=== PATIENT | female | born 1965 | race Caucasian/White ===

== ENCOUNTER → 2019-07-31 10:48 | Outpatient (BNVA) | payer MEDICARE, SELFPAY | PROVIDERS: Family Provider Internal Medicine; PCP Internal Medicine; Visit Provider Nurse Practitioner | DX: F33.41 Major depressive disorder, recurrent, in partial remission (principal); F17.210 Nicotine dependence, cigarettes, uncomplicated | CPT/HCPCS: 99213 ==

== ENCOUNTER → 2019-09-11 11:00 | Outpatient (BNVA) | payer MEDICARE, SELFPAY | PROVIDERS: Family Provider Internal Medicine; PCP Internal Medicine; Visit Provider Internal Medicine | DX: J32.9 Chronic sinusitis, unspecified (principal); E11.65 Type 2 diabetes mellitus with hyperglycemia; Z79.4 Long term (current) use of insulin; E03.9 Hypothyroidism, unspecified; R30.0 Dysuria; I10 Essential (primary) hypertension; F33.41 Major depressive disorder, recurrent, in partial remission | CPT/HCPCS: 80053; 81003; 83036; 84443; 85025 ==

== ENCOUNTER → 2019-10-02 08:31 | Outpatient (BNVA) | payer MEDICARE, SELFPAY | PROVIDERS: Family Provider Internal Medicine; PCP Internal Medicine; Visit Provider Otolaryngology | DX: H92.01 Otalgia, right ear (principal); H69.81 Other specified disorders of Eustachian tube, right ear; J34.2 Deviated nasal septum; F17.210 Nicotine dependence, cigarettes, uncomplicated; Z71.6 Tobacco abuse counseling | CPT/HCPCS: 99213; 99214 ==

== ENCOUNTER → 2019-11-24 07:47 | Outpatient (BNVA) | payer MEDICARE, SELFPAY | PROVIDERS: Family Provider Internal Medicine; PCP Internal Medicine; Visit Provider Nurse Practitioner | DX: F33.41 Major depressive disorder, recurrent, in partial remission (principal); F60.3 Borderline personality disorder | CPT/HCPCS: 99213 ==

== ENCOUNTER 2020-01-22 09:17 | Outpatient (CLI) | payer MEDICARE, SELFPAY ==
--- NOTE | 2020-01-22 09:23 | MM_ITS ---
WS: [id number] BILATERAL DIGITAL SCREENING MAMMOGRAM WITH CAD CLINICAL INFORMATION: SCREENING HISTORY: Screening mammogram. No current complaints. COMPARISON: [id number] TECHNIQUE: Bilateral CC and MLO views. FINDINGS: Fatty-replaced breasts bilaterally. No suspicious focal mass, asymmetry, calcifications, or desktop architect ural distortion. No evidence of malignancy. MM/[id number] IMPRESSION: BI-RADS: 1-Negative FOLLOW UP: 1 Year Follow-up Recommend return to annual screening mammography.
== END 2020-01-22 09:18 | disposition home or self-care (01) ==
LOC: RADSHAW 09:21
PROVIDERS: PCP Internal Medicine; Visit Provider Internal Medicine
DX: Z12.31 Encounter for screening mammogram for malignant neoplasm of breast (principal)
CPT/HCPCS: 77067

== ENCOUNTER → 2020-02-19 10:21 | Outpatient (BNVA) | payer MEDICARE, SELFPAY | PROVIDERS: PCP Internal Medicine; Visit Provider Nurse Practitioner | DX: F33.41 Major depressive disorder, recurrent, in partial remission (principal); F17.210 Nicotine dependence, cigarettes, uncomplicated | CPT/HCPCS: 99213 ==

== ENCOUNTER → 2020-05-13 15:00 | Outpatient (BNVA) | payer MEDICARE, SELFPAY | PROVIDERS: PCP Internal Medicine; Visit Provider Nurse Practitioner | DX: F33.41 Major depressive disorder, recurrent, in partial remission (principal); F17.210 Nicotine dependence, cigarettes, uncomplicated | CPT/HCPCS: 99213 ==

== ENCOUNTER → 2020-07-30 08:32 | Outpatient (BNVA) | payer MEDICARE, SELFPAY | PROVIDERS: PCP Internal Medicine; Visit Provider Family Medicine Adult Medicine | DX: E11.65 Type 2 diabetes mellitus with hyperglycemia (principal); I10 Essential (primary) hypertension; E66.9 Obesity, unspecified; Z13.6 Encounter for screening for cardiovascular disorders; Z79.4 Long term (current) use of insulin | CPT/HCPCS: 80053; 80061; 83036; 84443; 85025 ==

== ENCOUNTER → 2020-08-10 15:01 | Outpatient (BNVA) | payer MEDICARE, SELFPAY | PROVIDERS: PCP Internal Medicine; Visit Provider Nurse Practitioner | DX: F33.41 Major depressive disorder, recurrent, in partial remission (principal); F17.210 Nicotine dependence, cigarettes, uncomplicated | CPT/HCPCS: 99214 ==

== ENCOUNTER → 2020-11-02 14:47 | Outpatient (BNVA) | payer MEDICARE, SELFPAY | PROVIDERS: PCP Internal Medicine; Visit Provider Nurse Practitioner | DX: F33.41 Major depressive disorder, recurrent, in partial remission (principal); F17.210 Nicotine dependence, cigarettes, uncomplicated | CPT/HCPCS: 99214 ==

== ENCOUNTER → 2020-11-17 11:30 | Outpatient (BNVA) | payer MEDICARE, SELFPAY | PROVIDERS: PCP Family Medicine Adult Medicine; Visit Provider Family Medicine Adult Medicine | DX: E11.69 Type 2 diabetes mellitus with other specified complication (principal); E66.9 Obesity, unspecified; E66.01 Morbid (severe) obesity due to excess calories; Z68.41 Body mass index [BMI] 40.0-44.9, adult; N18.2 Chronic kidney disease, stage 2 (mild); I10 Essential (primary) hypertension; E78.5 Hyperlipidemia, unspecified; J30.9 Allergic rhinitis, unspecified; R60.0 Localized edema; H69.81 Other specified disorders of Eustachian tube, right ear; J32.0 Chronic maxillary sinusitis | CPT/HCPCS: 80053; 80061; 83036; 85025 ==

== ENCOUNTER 2021-01-24 10:22 | Outpatient (CLI) | payer MEDICARE, SELFPAY ==
--- NOTE | 2021-01-24 10:33 | MM_ITS ---
WS: [id number] BILATERAL DIGITAL SCREENING MAMMOGRAPHY WITH CAD CLINICAL INFORMATION: SCREENING HISTORY: Screening mammogram. No current complaints. COMPARISON: January 22, 2020 TECHNIQUE: Bilateral CC and MLO views. FINDINGS: Scattered fibroglandular densities bilaterally. No suspicious focal mass, asymmetry, calcifications, or architectural distortion. No evidence of malignancy. MM/[id number] IMPRESSION: BI-RADS: 1-Negative FOLLOW UP: 1 Year Follow-up Recommend return to annual screening mammography.
== END 2021-01-24 10:23 | disposition home or self-care (01) ==
LOC: RADSHAW 10:30
PROVIDERS: PCP Family Medicine Adult Medicine; Visit Provider Family Medicine Adult Medicine
DX: Z12.31 Encounter for screening mammogram for malignant neoplasm of breast (principal)
CPT/HCPCS: 77067

== ENCOUNTER → 2021-01-27 09:42 | Outpatient (BNVA) | payer MEDICARE, SELFPAY | PROVIDERS: PCP Internal Medicine; Visit Provider Nurse Practitioner | DX: F33.41 Major depressive disorder, recurrent, in partial remission (principal); F17.210 Nicotine dependence, cigarettes, uncomplicated | CPT/HCPCS: 99214 ==

== ENCOUNTER → 2021-02-15 08:58 | Outpatient (BNVA) | payer MEDICARE, SELFPAY | PROVIDERS: PCP Internal Medicine; Visit Provider Family Medicine Adult Medicine | DX: E11.69 Type 2 diabetes mellitus with other specified complication (principal); E66.9 Obesity, unspecified; E78.5 Hyperlipidemia, unspecified; N18.2 Chronic kidney disease, stage 2 (mild) | CPT/HCPCS: 80053; 80061; 83036 ==

== ENCOUNTER 2021-02-28 11:48 | Outpatient (CLI) | payer MEDICARE, SELFPAY ==
--- NOTE | 2021-02-28 12:00 | US_ITS ---
WS: [id number] ULTRASOUND SOFT TISSUES LEFT upper extremity. HISTORY: left arm muscle pain and swelling, non-traumatic COMPARISON: None available. TECHNIQUE: 2-D and color Doppler imaging is submitted. No abnormality is noted along the LEFT upper outer arm in the area of concern. There is no edema or m ass. US/US soft tissue/extremity [id number] IMPRESSION: Negative soft tissue ultrasound LEFT upper extremity.
== END 2021-02-28 11:49 | disposition home or self-care (01) ==
PROVIDERS: PCP Family Medicine Adult Medicine; Visit Provider Family Medicine Adult Medicine
DX: M79.622 Pain in left upper arm (principal); M79.89 Other specified soft tissue disorders
CPT/HCPCS: 76882

== ENCOUNTER → 2021-04-29 10:53 | Outpatient (BNVA) | payer MEDICARE, SELFPAY | PROVIDERS: PCP Family Medicine Adult Medicine; Visit Provider Nurse Practitioner | DX: F33.41 Major depressive disorder, recurrent, in partial remission (principal); F17.210 Nicotine dependence, cigarettes, uncomplicated | CPT/HCPCS: 99214 ==

== ENCOUNTER → 2021-07-22 10:46 | Outpatient (BNVA) | payer MEDICARE, SELFPAY | PROVIDERS: PCP Family Medicine Adult Medicine; Visit Provider Nurse Practitioner | DX: F33.41 Major depressive disorder, recurrent, in partial remission (principal); F17.210 Nicotine dependence, cigarettes, uncomplicated | CPT/HCPCS: 99214 ==

== ENCOUNTER → 2021-07-27 07:31 | Outpatient (BNVA) | payer MEDICARE, SELFPAY | PROVIDERS: PCP Family Medicine Adult Medicine; Visit Provider Family Medicine Adult Medicine | DX: E61.1 Iron deficiency (principal); E66.01 Morbid (severe) obesity due to excess calories; E78.5 Hyperlipidemia, unspecified; N18.2 Chronic kidney disease, stage 2 (mild); I12.9 Hypertensive chronic kidney disease with stage 1 through stage 4 chronic kidney disease, or unspecified chronic kidney disease; Z68.41 Body mass index [BMI] 40.0-44.9, adult | CPT/HCPCS: 80053; 80061; 83036; 84443; 85025 ==

== ENCOUNTER → 2021-10-17 10:47 | Outpatient (BNVA) | payer MEDICARE, SELFPAY | PROVIDERS: PCP Family Medicine Adult Medicine; Visit Provider Nurse Practitioner | DX: F33.41 Major depressive disorder, recurrent, in partial remission (principal); F17.210 Nicotine dependence, cigarettes, uncomplicated | CPT/HCPCS: 99214 ==

== ENCOUNTER → 2021-10-21 09:38 | Outpatient (BNVA) | payer MEDICARE, SELFPAY | PROVIDERS: PCP Family Medicine Adult Medicine; Visit Provider Family Medicine Adult Medicine | DX: E11.69 Type 2 diabetes mellitus with other specified complication (principal); E66.9 Obesity, unspecified; E78.5 Hyperlipidemia, unspecified | CPT/HCPCS: 80053; 80061; 83036; 85025 ==

== ENCOUNTER → 2022-01-10 10:40 | Outpatient (BNVA) | payer MEDICARE, SELFPAY | PROVIDERS: PCP Family Medicine Adult Medicine; Visit Provider Nurse Practitioner | DX: F33.41 Major depressive disorder, recurrent, in partial remission (principal); F17.210 Nicotine dependence, cigarettes, uncomplicated | CPT/HCPCS: 99214 ==

== ENCOUNTER 2022-01-27 11:25 | Outpatient (CLI) | payer MEDICARE, SELFPAY ==
--- NOTE | 2022-01-27 11:27 | MM_ITS ---
WS: [id number] Bilateral screening 3D tomosynthesis digital mammogram, 01/27/2022 Clinical Data: SCREEN Comparison: 01/24/2021, 01/22/2020, 01/20/2019, 01/18/2018, 01/12/2017, 01/11/2016, 10/08/2013, 10/20/2004. Findings: The breast parenchymal pattern shows fat replacement. No spiculated masses or clustered calcification s are seen. There are no secondary signs of carcinoma. MM/[id number] Impression: 1. Negative bilateral mammogram unchanged. 2. Recommend annual screening mammograms. BIRADS: 1-Negative FOLLOW UP: 1 Year Follow-up The CAD warehouse checker was used.
== END 2022-01-27 11:26 | disposition home or self-care (01) ==
LOC: RAD 11:25
PROVIDERS: PCP Family Medicine Adult Medicine; Visit Provider Family Medicine Adult Medicine
DX: Z12.31 Encounter for screening mammogram for malignant neoplasm of breast (principal)
CPT/HCPCS: 77063; 77067

== ENCOUNTER → 2022-03-02 10:10 | Outpatient (BNVA) | payer MEDICARE, SELFPAY | PROVIDERS: PCP Family Medicine Adult Medicine; Visit Provider Family Medicine Adult Medicine | DX: E11.22 Type 2 diabetes mellitus with diabetic chronic kidney disease (principal); N18.2 Chronic kidney disease, stage 2 (mild); E66.9 Obesity, unspecified | CPT/HCPCS: 80053; 80061; 83036 ==

== ENCOUNTER → 2022-04-06 15:38 | Outpatient (BNVA) | payer MEDICARE, SELFPAY | PROVIDERS: PCP Family Medicine Adult Medicine; Visit Provider Family Medicine | DX: M54.9 Dorsalgia, unspecified (principal); G89.29 Other chronic pain; M54.50 Low back pain, unspecified | CPT/HCPCS: 81000 ==

== ENCOUNTER → 2022-05-11 10:35 | Outpatient (BNVA) | payer MEDICARE, SELFPAY | PROVIDERS: PCP Family Medicine Adult Medicine; Visit Provider Family Medicine Adult Medicine | DX: E66.9 Obesity, unspecified; N18.2 Chronic kidney disease, stage 2 (mild); E78.5 Hyperlipidemia, unspecified; E66.01 Morbid (severe) obesity due to excess calories; E11.22 Type 2 diabetes mellitus with diabetic chronic kidney disease; I12.9 Hypertensive chronic kidney disease with stage 1 through stage 4 chronic kidney disease, or unspecified chronic kidney disease | CPT/HCPCS: 80053; 80061; 83036; 85025 ==

== ENCOUNTER → 2022-11-14 09:11 | Outpatient (BNVA) | payer MEDICARE, SELFPAY | PROVIDERS: PCP Family Medicine Adult Medicine; Visit Provider Family Medicine Adult Medicine | DX: N18.2 Chronic kidney disease, stage 2 (mild) (principal); I10 Essential (primary) hypertension; F33.41 Major depressive disorder, recurrent, in partial remission; E66.9 Obesity, unspecified; E11.69 Type 2 diabetes mellitus with other specified complication | CPT/HCPCS: 80053; 82652; 83036; 84443; 85025 ==

== ENCOUNTER 2023-01-29 12:58 | Outpatient (CLI) | payer MEDICARE, SELFPAY ==
--- NOTE | 2023-01-29 13:26 | MM_ITS ---
WS: [id number] BILATERAL 3D TOMOSYNTHESIS DIGITAL SCREENING MAMMOGRAPHY WITH CAD CLINICAL INFORMATION: SCREENING HISTORY: Screening mammogram. No current complaints. COMPARISON: 2021 TECHNIQUE: Bilateral CC and MLO views. FINDINGS: Scattered fibroglandular densities bilaterally. No suspicious focal mass, asymmetry, calcifications, or architectural distortion. No evidence of malignancy. Incidental subareolar calcifications LEFT davion ast unchanged. MM/[id number] IMPRESSION: BI-RADS: 2-Benign FOLLOW UP: 1 Year Follow-up Recommend return to annual screening mammography.
== END 2023-01-29 12:59 | disposition home or self-care (01) ==
PROVIDERS: PCP Family Medicine Adult Medicine; Visit Provider Family Medicine Adult Medicine
DX: Z12.31 Encounter for screening mammogram for malignant neoplasm of breast (principal)
CPT/HCPCS: 77063; 77067

== ENCOUNTER → 2023-08-29 11:16 | Outpatient (BNVA) | payer MEDICARE, SELFPAY | PROVIDERS: PCP Family Medicine Adult Medicine; Visit Provider Family Medicine Adult Medicine | DX: I10 Essential (primary) hypertension (principal); E11.69 Type 2 diabetes mellitus with other specified complication; E66.9 Obesity, unspecified; E78.5 Hyperlipidemia, unspecified | CPT/HCPCS: 85025 ==

== ENCOUNTER → 2023-08-30 08:22 | Outpatient (BNVA) | payer MEDICARE, SELFPAY | PROVIDERS: PCP Family Medicine Adult Medicine; Visit Provider Family Medicine Adult Medicine | DX: I10 Essential (primary) hypertension (principal); E11.69 Type 2 diabetes mellitus with other specified complication; E66.9 Obesity, unspecified; E78.5 Hyperlipidemia, unspecified | CPT/HCPCS: 80053; 80061; 83036; 85025 ==

== ENCOUNTER 2024-01-26 13:18 | Emergency (ER) | payer MEDICARE, MEDICAID, SELFPAY ==
[2024-01-26 13:26] VITALS: BP 129/73; PULSE 110; RESP 17; TEMP 37.1; O2SAT 95; BMI 44.4
--- NOTE | 2024-01-26 13:52 | ED_ITS ---
HPI - Skin/Abscess/Foreign Bdy 2 General: Chief complaint: Skin/Abscess/Foreign Body Stated complaint: Red spots all over sent by Time Seen by Provider: 01/26/24 13:38 Source: patient Mode of arrival: ambulatory Limitations: no limitations History of Present Illness: Patient is a 58-year-old female presenting to the emergency department, sent over emergent care, due to bullous rash that has been evolving over the past 2 weeks. Prior to onset, patient was started on Bactrim for ear infection, and has since had that prescription refilled. She notes that she has had multiple bullous lesions pop up, that began as red macular areas that blister and pop, often draining pus or serous fluid. They are tender to the touch. She denies any contact to any potential allergens, such as new detergents or bedsheets, or any exposure to plants. She has not been running any fevers, however she does arrive to the emergency department with a mild tachycardia noted. She is afebrile at this time. She has 1 lesion covered with a Band-Aid due to the extent of its skin breakdown. There are no oral lesions reported. In addition to the Bactrim she is on fluconazole for yeast infection prophylactically. MD complaint: rash Onset (ago): week(s) Location: back, LUE, RUE, LLE and RLE Severity: moderate Context: new medication Associated symptoms: Deny chills, fever(s), nausea or vomiting Review of Systems 2 General: Reports: 10 or more systems reviewed and unremarkable except in HPI and below Const: Denies: fever(s) or chills Card: Denies: chest pain Resp: Denies: dyspnea GI: Denies: abdominal pain, nausea, vomiting or diarrhea Musc: Denies: extremity pain or joint pain Skin/Breast: Reports: rash, erythema, skin tenderness, new lesions and changing lesions Neuro: Denies: headache(s) PFSH ED 2 PFSH: Medical History Right otitis media Bilateral otitis externa TMJ tenderness, right Grieving Chronic asthmatic bronchitis Weight gain finding Psoriasis with arthropathy Chronic back pain greater than 3 months duration Psychiatric care Gastroparesis due to DM Dyslipidemia (high LDL; low HDL) CKD (chronic kidney disease) stage 2, GFR 60-89 ml/min Allergic rhinitis due to allergen Morbid obesity with BMI of 40.0-44.9, adult Diabetes mellitus type 2 in obese Hypertension GERD (gastroesophageal reflux disease) Nicotine dependence, cigarettes, uncomplicated Major depressive disorder, recurrent, in partial remission Surgical History S/P hysterectomy S/P lumpectomy of breast S/P knee replacement Rt knee replacement Status post hip surgery bilateral hips Social History Smoking and tobacco/nicotine status: current every day tobacco/nicotine user cigarettes Packs smoked per day: 0.5 Quit status (tobacco/nicotine): not considering quitting Alcohol intake: never Substance/Drug Use: never Caregiver/support person: No Lives independently: Yes Household members: spouse Marital status: service: No Current occupational status: disabled Do you think of yourself as: Straight/Heterosexual Current gender identity: Female Physical Exam 2 Const: COMMON NORMALS: no acute distress, patient oriented x3, no limitations, healthy appearing, alert and well nourished NUTRITIONAL APPEARANCE: obese HENMT: COMMON NORMALS: normocephalic, atraumatic, moist oral mucous membranes and oropharynx normal HEAD & SCALP: normocephalic and atraumatic OTHER: No oral lesions Neck/C-Spine: COMMON NORMALS: full ROM, no lymphadenopathy, supple and no meningeal signs Resp: COMMON NORMALS: normal respiratory effort, No use of accessory muscles and clear to auscultation bilaterally AUSCULTATION: clear to auscultation bilaterally Cardio: COMMON NORMALS: regular rate and regular rhythm RATE: regular rate RHYTHM: regular rhythm Extremity: COMMON NORMALS: full ROM and capillary refill normal Neuro: COMMON NORMALS: patient oriented x3, moves all extremities, no focal motor deficits and no sensory deficits noted SENSORIUM/ORIENTATION: Yes alert MENINGEAL SIGNS: Yes no meningeal signs Skin: COMMON NORMALS: turgor normal NARRATIVE SKIN EXAM: Multiple scattered areas of circumferential breakdown, appears bullous in nature. Some lesions appear broken open and previously drained, while some appear malleable of serous versus purulent fluid. Patient's back shows multiple spots of circumferential redness, these appear to be evolving/new lesions. Some of the lesions are tender to the touch. GENERAL SKIN EXAM: turgor normal Course 2 Vital Signs: Vital signs: Vital Signs Temperature 98.8 F 01/26/24 16:43 Pulse Rate 101 H 01/26/24 16:43 Respiratory Rate 16 01/26/24 16:43 Blood Pressure 132/75 01/26/24 16:43 Pulse Oximetry 96 01/26/24 16:43 Oxygen Delivery Me thod Room Air 01/26/24 13:26 MDM - Skin/Abscess/Foreign Bdy Medicial Decision Making Patient sent from urgent care due to possible drug eruption after she has been on Bactrim for the past 2 weeks. Exam did show multiple lesions of varying stages to her extremities, as well as new appearing macular spots to her back. She was afebrile though mildly tachycardic on arrival. Bactrim has been prescribed for ear infections. Blood work was obtained, ESR and CRP were mildly elevated, though nondiagnostic. Her CBC and CMP otherwise unremarkable aside from her elevated blood sugar, history of uncontrolled diabetes. She does see a local company truck driver in [place]. Pictures were sent to Dr. Mederos, local company truck driver here for her to review. I did speak with her primary care provider, Dr. Castañeda, who states that she can be given steroids and stop the Bactrim and follow-up with him in his office next week. In addition this case was discussed with Dr. Oshea and Dr. Cornejo. Patient's clinical examination, aside from the rash, finds her to be in no acute distress, and though this does appear to be a drug eruption, it does not appear to be at a concerning body surface area or with concerning physical exam findings of a Flores-Rolly syndrome. There were no oral involvement of the lesions. I did have a thorough conversation with the patient in regards to reasons to return, such that if her lesions continue to worsen despite stopping the Bactrim that she is to return immediately for reevaluation. If she develops any other systemic signs of illness she is also to return. Otherwise Dr. Castañeda will see her next week and she is to continue her follow-ups with dermatology. Lab Data 01/26/24 14:09 01/26/24 14:09 Laboratory Results WBC 8.24 10^3/uL (3.29-11.43) 01/26/24 14:09 RBC 4.18 10^6/uL (3.85-5.65) 01/26/24 14:09 Hgb 14.00 g/dL (11.27-16.99) 01/26/24 14:09 Hct 43.1 % (36-47) 01/26/24 14:09 MCV 103.1 fl (85-98) H 01/26/24 14:09 MCH 33.5 pg (27-33) H 01/26/24 14:09 MCHC 32.5 g/dL (30-55) 01/26/24 14:09 RDW 14.0 % (12.1-15.1) 01/26/24 14:09 Plt Count 181 10^3/cmm (157-399) 01/26/24 14:09 MPV 10.9 fL (7.4-10.4) H 01/26/24 14:09 Neut % (Auto) 66.4 % 01/26/24 14:09 Lymph % (Auto) 25.2 % 01/26/24 14:09 [place] % (Auto) 7.4 % 01/26/24 14:09 Eos % (Auto) 0.1 % 01/26/24 14:09 Baso % (Auto) 0.4 % 01/26/24 14:09 Neut # (Auto) 5.47 10^3/uL (1.8-7.7) 01/26/24 14:09 Lymph # (Auto) 2.1 10^3/uL (0.8-4.8) 01/26/24 14:09 [place] # (Auto) 0.6 10^3/uL (0.2-0.9) 01/26/24 14:09 Eos # (Auto) 0.0 10^3/uL (0.0-0.8) 01/26/24 14:09 Baso # (Auto) 0.0 10^3/uL (0.0-0.1) 01/26/24 14:09 Nucleated RBC % (auto) 0 % 01/26/24 14:09 Nucleated RBCs # 0.0 /100WBC 01/26/24 14:09 ESR 33 mm/hr (0-15) H 01/26/24 14:09 Sodium 133 mmol/L (136-145) L 01/26/24 14:09 Potassium 4.8 mmol/L (3.5-5.1) 01/26/24 14:09 Chloride 96 mmol/L (98-107) L 01/26/24 14:09 Carbon Dioxide 22 mmol/L (22-29) 01/26/24 14:09 Anion Gap 19.8 (5-19) H 01/26/24 14:09 BUN 18 mg/dL (6-20) 01/26/24 14:09 Creatinine 1.2 mg/dL (0.5-0.9) H 01/26/24 14:09 GFR Calculation 46.0 mL/min (90-130) L 01/26/24 14:09 Glucose 333 mg/dL (65-115) H 01/26/24 14:09 Calculated Osmolality 291 mOsm/kg (285-295) 01/26/24 14:09 Lactic Acid 1.8 mmol/L (0.5-2.2) 01/26/24 14:13 Calcium 8.6 mg/dL (8.5-10.5) 01/26/24 14:09 Total Bilirubin 0.2 mg/dL (0.15-1.2) 01/26/24 14:09 AST 13 U/L (0-32) 01/26/24 14:09 ALT 14 U/L (0-33) 01/26/24 14:09 Alkaline Phosphatase 126 U/L (35-105) H 01/26/24 14:09 C-Reactive Protein 34.3 mg/L (0.0-4.9) H 01/26/24 14:09 Total Protein 6.8 g/dL (6.6-8.7) 01/26/24 14:09 Albumin 3.8 g/dL (3.5-5.2) 01/26/24 14:09 Globulin 3.0 g/dL (1.3-4.6) 01/26/24 14:09 Procalcitonin 0.15 ng/mL (0-0.5) 01/26/24 14:09 No radiology studies performed this visit Discharge Plan Discharge Patient Disposition: Home Clinical Impression: Drug eruption Condition: Stable Prescriptions: New prednisone 20 mg tablet 60 mg PO ONCE 5 Days Qty: 15 0RF Discontinued sulfamethoxazole-trimethoprim [Bactrim DS] 800-160 mg tablet 1 tab PO BID Qty: 20 0RF No Action ferrous sulfate 324 mg (65 mg iron) tablet,delayed release (DR/EC) 324 mg PO QDAY 90 Days Qty: 90 3RF Rx Instructions: 340 B medications loratadine [Allergy Relief (loratadine)] 10 mg tablet 10 mg PO BID calcium carbonate 650 mg calcium (1,625 mg) tablet 650 mg PO DAILY Skyrizi 150mg/1.66mL(75 mg/0.83 mL x2) syringe kit 150 mg SUBCUT PER PKG DIR PRN (Reason: psoriasis) Qty: 2 3RF Rx Instructions: 2 shots, 75mg each. every 12 weeks venlafaxine [Effexor XR] 150 mg capsule,extended release 24hr 150 mg PO QAM 90 Days Qty: 90 3RF Rx Instructions: 340 B medications trazodone 100 mg tablet 100 mg PO .at bed 90 Days Qty: 90 3RF Rx Instructions: 340 B medications (DME) pen needle, diabetic [BD Ultra-Fine Orig Pen Needle] 29 gauge x 1/2 needle See Rx Instructions .Route Qty: 100 3RF Rx Instructions: As directed, TWICE A DAY diclofenac sodium [Arthritis Pain (diclofenac)] 1 % gel 4 g topical QID Qty: 100 3RF Rx Instructions: apply to single knee, ankle, foot; for foot includes sole/toes/top of foot tramadol 50 mg tablet 50 mg PO Q8H PRN (Reason: pain) Qty: 30 0RF guaifenesin 600 mg tablet extended release 12hr 600 mg PO BID Qty: 30 0RF azelastine 137 mcg (0.1 %) aerosol,spray 2 spray intranasal BID PRN (Reason: allergy symptoms) Qty: 30 3RF Rx Instructions: administer into each nostril (DME) One touch glucose strips supplies See Rx Instructions .Route .MEDSUPPLY Qty: 1 5RF Rx Instructions: test blood sugar 3 times per day. Janumet XR 100-1,000 mg tablet, ER multiphase 24 hr 1 tab PO DAILY Qty: 90 3RF metoclopramide HCl 5 mg tablet 5 mg PO BID 90 Days Qty: 180 3RF celecoxib 200 mg capsule 200 mg PO BID PRN (Reason: neck strain/headaches) Qty: 180 1RF Jardiance 25 mg tablet 25 mg PO DAILY Qty: 90 1RF clotrimazole-betamethasone 1-0.05 % cream 1 applic topical BID Qty: 45 0RF atorvastatin 40 mg tablet 40 mg PO DAILY Qty: 90 1RF albuterol sulfate 90 mcg/actuation HFA aerosol inhaler 2 puff inhalation 6XD PRN (Reason: shortness of breath or wheezing) Qty: 8.5 1RF insulin detemir U-100 100 unit/mL (3 mL) insulin pen 60 unit SUBCUT BID 90 Days Qty: 120 3RF niacin 750 mg tablet extended release 24 hr 750 mg PO DAILY Qty: 90 3RF glimepiride 4 mg tablet 4 mg PO BID 90 Days Qty: 180 3RF pantoprazole 40 mg tablet,delayed release (DR/EC) 40 mg PO QDAY 90 Days Qty: 90 3RF losartan-hydrochlorothiazide 50-12.5 mg tablet 1 tab PO DAILY 90 Days Qty: 90 3RF metoprolol tartrate 25 mg tablet 25 mg PO BID 90 Days Qty: 180 3RF Rx Instructions: 340 B medications fluconazole 150 mg tablet 150 mg PO Q3D Qty: 7 0RF blood sugar diagnostic Strip See Rx Instructions miscellaneous .COMPLEX Qty: 300 3RF Dose Instruction: USE TO TEST TWICE DAILY Rx Instructions: USE TO TEST THREE DAILY miscellaneous; Discharge Orders: Discharge ED (Routine); Ordered 01/26/24 Ordered By: Bravo Daniels Referrals: David Castañeda MD [Primary Care Provider] - Discharge Diet: Usual diet Discharge Activity: Increase activity as tolerated Patient Instructions: Adverse Drug Reaction (ED) Activity Restrictions/Additional Instructions: Please stop your Bactrim. Take steroids as prescribed. Follow-up with Dr. Castañeda next week as discussed. Continue follow-ups with dermatology. If you develop any worsening of rash or other concerning symptoms such as high fever, please return immediately for reevaluation. Additionally, please monitor your blood sugars very closely and return with any abnormally high readings. Coding Level of Care Code ED Airplane Electrician for Ash Goode
[2024-01-26] MEDS: dexamethasone 10 mg/mL INJ IVP (14:17)
[2024-01-26 14:19] LABS: Basophils % 0.4 %; Eosinophils % 0.1 %; Hematocrit 43.1 % (36-47); Lymphocytes # 2.1 10^3/uL (0.8-4.8); Lymphocytes % 25.2 %; Mean Corpuscular HGB Conc 32.5 g/dL (30-55); Mean Corpuscular Hemoglobin 33.5 pg (27-33); Mean Corpuscular Volume 103.1 fl (85-98); Mean Platelet Volume 10.9 fL (7.4-10.4); Monocytes # 0.6 10^3/uL (0.2-0.9); Monocytes % 7.4 %; Neutrophils # 5.47 10^3/uL (1.8-7.7); Neutrophils % 66.4 %; Nucleated Red Blood Cells % 0 %; Platelet Count 181 10^3/cmm (157-399); Red Blood Count 4.18 10^6/uL (3.85-5.65); White Blood Count 8.24 10^3/uL (3.29-11.43)
[2024-01-26 14:23] LABS: Erythrocyte Sedimentation Rate 33 mm/hr (0-15)
[2024-01-26 14:41] LABS: Alanine Aminotransferase 14 U/L (0-33); Albumin Level 3.8 g/dL (3.5-5.2); Alkaline Phosphatase 126 U/L (35-105); Anion Gap 19.8 (5-19); Aspartate Amino Transferase 13 U/L (0-32); Blood Urea Nitrogen 18 mg/dL (6-20); C Reactive Protein 34.3 mg/L (0.0-4.9); Calcium 8.6 mg/dL (8.5-10.5); Carbon Dioxide 22 mmol/L (22-29); Chloride 96 mmol/L (98-107); Glucose 333 mg/dL (65-115); Osmolality Calculated 291 mOsm/kg (285-295); Potassium 4.8 mmol/L (3.5-5.1); Sodium 133 mmol/L (136-145); Total Bilirubin 0.2 mg/dL (0.15-1.2); Total Protein 6.8 g/dL (6.6-8.7)
[2024-01-26 14:41] LABS: Lactic Sepsis W/Reflex 1.8 mmol/L (0.5-2.2)
[2024-01-26 14:47] LABS: Procalcitonin 0.15 ng/mL (0-0.5)
[2024-01-26 14:50] LABS: Creatinine Clr Calc Pharmacy 75.1711
[2024-01-26] MEDS: sodium chloride 0.9% 1,000 ML 999 ML IV (15:35)
[2024-01-26 16:43] VITALS: BP 132/75; PULSE 101; RESP 16; TEMP 37.1; O2SAT 96
== END 2024-01-26 14:38 | disposition home or self-care (01) ==
PROVIDERS: Emergency Provider Physician Assistant; PCP Family Medicine Adult Medicine
DX: L27.0 Generalized skin eruption due to drugs and medicaments taken internally (principal); Z79.4 Long term (current) use of insulin; F17.210 Nicotine dependence, cigarettes, uncomplicated; E78.5 Hyperlipidemia, unspecified; E11.22 Type 2 diabetes mellitus with diabetic chronic kidney disease; I12.9 Hypertensive chronic kidney disease with stage 1 through stage 4 chronic kidney disease, or unspecified chronic kidney disease; N18.2 Chronic kidney disease, stage 2 (mild); T36.8X5A Adverse effect of other systemic antibiotics, initial encounter
CPT/HCPCS: 36415; 80053; 83605; 84145; 85651; 86140; 87040; 96374; 99284; 99291; J1100; J7030

== ENCOUNTER 2024-01-27 15:09 | Emergency (ER) | payer MEDICARE, MEDICAID, SELFPAY ==
[2024-01-27 15:32] LABS: Hematocrit 41.6 % (36-47); Lymphocytes # 1.1 10^3/uL (0.8-4.8); Lymphocytes % 10.2 %; Mean Corpuscular Hemoglobin 32.8 pg (27-33); Mean Corpuscular Volume 102.5 fl (85-98); Monocytes # 0.1 10^3/uL (0.2-0.9); Monocytes % 1.2 %; Neutrophils # 9.53 10^3/uL (1.8-7.7); Nucleated Red Blood Cells % 0 %; Platelet Count 190 10^3/cmm (157-399); Red Blood Count 4.06 10^6/uL (3.85-5.65); Red Cell Distribution Width 13.8 % (12.1-15.1); White Blood Count 10.83 10^3/uL (3.29-11.43)
[2024-01-27 15:38] VITALS: BP 108/66; PULSE 98; RESP 16; TEMP 37.1; O2SAT 97
[2024-01-27 15:51] LABS: Glucose Point of Care > 600 mg/dL (70-110)
[2024-01-27 15:52] LABS: Alanine Aminotransferase 14 U/L (0-33); Albumin Level 3.8 g/dL (3.5-5.2); Alkaline Phosphatase 124 U/L (35-105); Anion Gap 21.5 (5-19); Aspartate Amino Transferase 12 U/L (0-32); Blood Urea Nitrogen 24 mg/dL (6-20); Calcium 8.8 mg/dL (8.5-10.5); Carbon Dioxide 19 mmol/L (22-29); Chloride 93 mmol/L (98-107); Globulin 3.1 g/dL (1.3-4.6); Glomerular Filtration Rate 41.9 mL/min (90-130); Osmolality Calculated 298 mOsm/kg (285-295); Potassium 5.5 mmol/L (3.5-5.1); Sodium 128 mmol/L (136-145); Total Bilirubin 0.3 mg/dL (0.15-1.2); Total Protein 6.9 g/dL (6.6-8.7)
[2024-01-27 15:57] VITALS: BP 117/76; PULSE 95; RESP 17; O2SAT 96
--- NOTE | 2024-01-27 15:59 | ED_ITS ---
HPI - Recheck/Abnormal Lab/Rx 2 General: Chief Complaint: Recheck/Abnormal Lab/Rx Stated Complaint: high blood sugar Time Seen by Provider: 01/27/24 15:18 Source: patient Mode of arrival: ambulatory Limitations: no limitations History of Present Illness: 58-year-old female states that she was s een here yesterday for a rash she is to follow-up with her power brake rebuilder where she was started on prednisone states today that her blood sugars been running high it is over 600 here currently states she took in her normal dose of insulin. She denies any fevers denies any vomiting or diarrhea. Review of Systems 2 Const: Denies: fever(s), chills, body aches or change in appetite Eyes: Denies: blurry vision or eye discomfort ENMT: Denies: throat pain or dental pain Card: Denies: chest pain Resp: Denies: dyspnea GI: Denies: abdominal pain, nausea, vomiting or diarrhea Musc: Denies: neck pain or back pain Skin/Breast: Reports: rash PFSH ED 2 PFSH: Medical History Right otitis media Bilateral otitis externa TMJ tenderness, right Grieving Chronic asthmatic bronchitis Weight gain finding Psoriasis with arthropathy Chronic back pain greater than 3 months duration Psychiatric care Gastroparesis due to DM Dyslipidemia (high LDL; low HDL) CKD (chronic kidney disease) stage 2, GFR 60-89 ml/min Allergic rhinitis due to allergen Morbid obesity with BMI of 40.0-44.9, adult Diabetes mellitus type 2 in obese Hypertension GERD (gastroesophageal reflux disease) Nicotine dependence, cigarettes, uncomplicated Major depressive disorder, recurrent, in partial remission Surgical History S/P hysterectomy S/P lumpectomy of breast S/P knee replacement Rt knee replacement Status post hip surgery bilateral hips Social History Smoking and tobacco/nicotine status: current every day tobacco/nicotine user cigarettes Packs smoked per day: 0.5 Quit status (tobacco/nicotine): not considering quitting Alcohol intake: never Substance/Drug Use: never Caregiver/support person: No Lives independently: Yes Household members: spouse Marital status: service: No Current occupational status: disabled Do you think of yourself as: Straight/Heterosexual Current gender identity: Female Physical Exam 2 Const: COMMON NORMALS: no acute distress, patient oriented x3 and healthy appearing HENMT: COMMON NORMALS: normocephalic and atraumatic HEAD & SCALP: n ormocephalic and atraumatic Neck/C-Spine: COMMON NORMALS: full ROM Chest: COMMONS NORMALS: normal inspection of the chest Resp: COMMON NORMALS: normal respiratory effort Cardio: COMMON NORMALS: regular rate, regular rhythm and No murmurs present (Cardio) RATE: regular rate RHYTHM: regular rhythm Extremity: COMMON NORMALS: normal to inspection and full ROM Neuro: COMMON NORMALS: patient oriented x3, moves all extremities and no focal motor deficits Psych: COMMON NORMALS: mental status grossly normal, Normal thought process present and cooperative THOUGHT PROCESS: Normal thought process present Skin: COMMON NORMALS: no wounds Course 2 Vital Signs: Vital signs: Vital Signs Temperature 98.7 F 01/27/24 15:38 Pulse Rate 90 01/27/24 16:41 Respiratory Rate 16 01/27/24 16:41 Blood Pressure 127/84 01/27/24 16:41 Pulse Oximetry 95 01/27/24 16:41 Oxygen Delivery Me thod Room Air 01/27/24 16:41 MDM - Recheck/Abnormal Lab/Rx Medical Decision Making Patient presents with hyperglycemia likely from her steroid. Patient blood sugar here is improving she does not appear to be in DKA she is wanting to leave at this time because she states she wants a soda and a cigarette I informed her she needs to watch her diet she is follow-up with PCP and return if worsening she understands agrees to plan. Medical Records I reviewed the patient's medical records. Lab Data I reviewed the patient's lab results. 01/27/24 15:25 01/27/24 15:25 Laboratory Results WBC 10.83 10^3/uL (3.29-11.43) 01/27/24 15:25 RBC 4.06 10^6/uL (3.85-5.65) 01/27/24 15:25 Hgb 13.30 g/dL (11.27-16.99) 01/27/24 15:25 Hct 41.6 % (36-47) 01/27/24 15:25 MCV 102.5 fl (85-98) H 01/27/24 15:25 MCH 32.8 pg (27-33) 01/27/24 15: MCHC 32.0 g/dL (30-55) 01/27/24 15:25 RDW 13.8 % (12.1-15.1) 01/27/24 15:25 Plt Count 190 10^3/cmm (157-399) 01/27/24 15:25 MPV 11.0 fL (7.4-10.4) H 01/27/24 15:25 Neut % (Auto) 88.0 % 01/27/24 15:25 Lymph % (Auto) 10.2 % 01/27/24 15: [place] % (Auto) 1.2 % 01/27/24 15: Eos % (Auto) 0.0 % 01/27/24 15: Baso % (Auto) 0.0 % 01/27/24 15: Neut # (Auto) 9.53 10^3/uL (1.8-7.7) H 01/27/24 15:25 Lymph # (Auto) 1.1 10^3/uL (0.8-4.8) 01/27/24 15:25 [place] # (Auto) 0.1 10^3/uL (0.2-0.9) L 01/27/24 15:25 Eos # (Auto) 0.0 10^3/uL (0.0-0.8) 01/27/24 15:25 Baso # (Auto) 0.0 10^3/uL (0.0-0.1) 01/27/24 15: Nucleated RBC % (auto) 0 % 01/27/24 15: Nucleated RBCs # 0.0 /100WBC 01/27/24 15:25 Sodium 128 mmol/L (136-145) L 01/27/24 15:25 Potassium 5.5 mmol/L (3.5-5.1) H 01/27/24 15:25 Chloride 93 mmol/L (98-107) L 01/27/24 15:25 Carbon Dioxide 19 mmol/L (22-29) L 01/27/24 15:25 Anion Gap 21.5 (5-19) H 01/27/24 15:25 BUN 24 mg/dL (6-20) H 01/27/24 15:25 Creatinine 1.3 mg/dL (0.5-0.9) H 01/27/24 15:25 GFR Calculation 41.9 mL/min (90-130) L 01/27/24 15:25 Glucose 605 mg/dL (65-115) H* 01/27/24 15:25 POC Glucose 372 mg/dL (70-110) H 01/27/24 18:29 Calculated Osmolality 298 mOsm/kg (285-295) H 01/27/24 15:25 Calcium 8.8 mg/dL (8.5-10.5) 01/27/24 15:25 Total Bilirubin 0.3 mg/dL (0.15-1.2) 01/27/24 15:25 AST 12 U/L (0-32) 01/27/24 15:25 ALT 14 U/L (0-33) 01/27/24 15:25 Alkaline Phosphatase 124 U/L (35-105) H 01/27/24 15:25 Total Protein 6.9 g/dL (6.6-8.7) 01/27/24 15:25 Albumin 3.8 g/dL (3.5-5.2) 01/27/24 15:25 Globulin 3.1 g/dL (1.3-4.6) 01/27/24 15:25 No radiology studies performed this visit Discharge Plan Discharge Patient Disposition: Home Clinical Impression: Hyperglycemia Condition: Stable Prescriptions: No Action ferrous sulfate 324 mg (65 mg iron) tablet,delayed release (DR/EC) 324 mg PO QDAY 90 Days Qty: 90 3RF Rx Instructions: 340 B medications loratadine [Allergy Relief (loratadine)] 10 mg tablet 10 mg PO BID calcium carbonate 650 mg calcium (1,625 mg) tablet 650 mg PO DAILY Skyrizi 150mg/1.66mL(75 mg/0.83 mL x2) syringe kit 150 mg SUBCUT PER PKG DIR PRN (Reason: psoriasis) Qty: 2 3RF Rx Instructions: 2 shots, 75mg each. every 12 weeks venlafaxine [Effexor XR] 150 mg capsule,extended release 24hr 150 mg PO QAM 90 Days Qty: 90 3RF Rx Instructions: 340 B medications trazodone 100 mg tablet 100 mg PO .at bed 90 Days Qty: 90 3RF Rx Instructions: 340 B medications (DME) pen needle, diabetic [BD Ultra-Fine Orig Pen Needle] 29 gauge x 1/2 needle See Rx Instructions .Route Qty: 100 3RF Rx Instructions: As directed, TWICE A DAY diclofenac sodium [Arthritis Pain (diclofenac)] 1 % gel 4 g topical QID Qty: 100 3RF Rx Instructions: apply to single knee, ankle, foot; for foot includes sole/toes/top of foot tramadol 50 mg tablet 50 mg PO Q8H PRN (Reason: pain) Qty: 30 0RF guaifenesin 600 mg tablet extended release 12hr 600 mg PO BID Qty: 30 0RF azelastine 137 mcg (0.1 %) aerosol,spray 2 spray intranasal BID PRN (Reason: allergy symptoms) Qty: 30 3RF Rx Instructions: administer into each nostril (DME) One touch glucose strips supplies See Rx Instructions .Route .MEDSUPPLY Qty: 1 5RF Rx Instructions: test blood sugar 3 times per day. Janumet XR 100-1,000 mg tablet, ER multiphase 24 hr 1 tab PO DAILY Qty: 90 3RF metoclopramide HCl 5 mg tablet 5 mg PO BID 90 Days Qty: 180 3RF celecoxib 200 mg capsule 200 mg PO BID PRN (Reason: neck strain/headaches) Qty: 180 1RF Jardiance 25 mg tablet 25 mg PO DAILY Qty: 90 1RF clotrimazole-betamethasone 1-0.05 % cream 1 applic topical BID Qty: 45 0RF atorvastatin 40 mg tablet 40 mg PO DAILY Qty: 90 1RF albuterol sulfate 90 mcg/actuation HFA aerosol inhaler 2 puff inhalation 6XD PRN (Reason: shortness of breath or wheezing) Qty: 8.5 1RF insulin detemir U-100 100 unit/mL (3 mL) insulin pen 60 unit SUBCUT BID 90 Days Qty: 120 3RF niacin 750 mg tablet extended release 24 hr 750 mg PO DAILY Qty: 90 3RF glimepiride 4 mg tablet 4 mg PO BID 90 Days Qty: 180 3RF pantoprazole 40 mg tablet,delayed release (DR/EC) 40 mg PO QDAY 90 Days Qty: 90 3RF losartan-hydrochlorothiazide 50-12.5 mg tablet 1 tab PO DAILY 90 Days Qty: 90 3RF metoprolol tartrate 25 mg tablet 25 mg PO BID 90 Days Qty: 180 3RF Rx Instructions: 340 B medications fluconazole 150 mg tablet 150 mg PO Q3D Qty: 7 0RF blood sugar diagnostic Strip See Rx Instructions miscellaneous .COMPLEX Qty: 300 3RF Dose Instruction: USE TO TEST TWICE DAILY Rx Instructions: USE TO TEST THREE DAILY miscellaneous; prednisone 20 mg tablet 60 mg PO ONCE 5 Days Qty: 15 0RF Discharge Orders: Discharge ED (Routine); Ordered 01/27/24 Ordered By: Andressa Avitia Referrals: David Castañeda MD [Primary Care Provider] - Discharge Diet: Advance as tolerated Discharge Activity: Resume usual activity Patient Instructions: Diabetic Hyperglycemia (ED) Coding Level of Care Code ED Prosthetic Makeup Designer for Ash Goode
[2024-01-27] MEDS: sodium chloride 0.9% 1,000 ML 999 ML IV ×2 (16:12→16:52)
[2024-01-27] MEDS: insulin regular-human 100 units/1 mL 15 UNIT IVP (16:25)
[2024-01-27 16:30] LABS: Glucose Point of Care 592 mg/dL (70-110)
[2024-01-27 16:38] LABS: Creatinine Clr Calc Pharmacy 69.3222
[2024-01-27 16:39] LABS: Glucose 605 mg/dL (65-115)
[2024-01-27 16:41] VITALS: BP 127/84; PULSE 90; RESP 16; O2SAT 95
[2024-01-27 17:38] LABS: Glucose Point of Care 426 mg/dL (70-110)
[2024-01-27 18:32] LABS: Glucose Point of Care 372 mg/dL (70-110)
[2024-01-27] MEDS: insulin regular-human 5 UNIT in SYRINGE 1 EACH IVP (18:58)
== END 2024-01-27 19:03 | disposition home or self-care (01) ==
PROVIDERS: Emergency Provider Emergency Medicine; PCP Family Medicine Adult Medicine
DX: I13.10 Hypertensive heart and chronic kidney disease without heart failure, with stage 1 through stage 4 chronic kidney disease, or unspecified chronic kidney disease (principal); E11.65 Type 2 diabetes mellitus with hyperglycemia; N18.2 Chronic kidney disease, stage 2 (mild); E11.22 Type 2 diabetes mellitus with diabetic chronic kidney disease; E78.5 Hyperlipidemia, unspecified; E66.01 Morbid (severe) obesity due to excess calories; R21 Rash and other nonspecific skin eruption; Z79.899 Other long term (current) drug therapy; Z79.4 Long term (current) use of insulin; Z79.84 Long term (current) use of oral hypoglycemic drugs; F17.210 Nicotine dependence, cigarettes, uncomplicated
CPT/HCPCS: 36415; 36416; 80053; 82962; 85025; 96361; 96374; 99284; J1815; J7030

== ENCOUNTER 2024-01-31 10:14 | Outpatient (CLI) | payer MEDICARE, MEDICAID, SELFPAY ==
--- NOTE | 2024-01-31 10:18 | MM_ITS ---
WS: [email or web address] BILATERAL SCREENING DIGITAL TOMOSYNTHESIS MAMMOGRAM WITH CAD HISTORY: SCREENING COMPARISON: 01/29/2023, 01/27/2022 Bilateral CC and MLO views with tomosynthesis and synthetic mammography submitted. Computer aided det ection analyzed. Breast composition: There are scattered areas of fibroglandular density. No suspicious masses, microc alcifications or architectural distortion. 3 coarse appearing calcifications in the anterior LEFT davion ast slightly increased in size but not number. There may be a small associated mass. RIGHT breast is negative. MM/[place] [id number] IMPRESSION: BI-RADS: 2-Benign FOLLOW UP: 1 Year Follow-up
== END 2024-01-31 10:15 | disposition home or self-care (01) ==
LOC: RAD 10:14
PROVIDERS: PCP Family Medicine Adult Medicine; Visit Provider Family Medicine Adult Medicine
DX: Z12.31 Encounter for screening mammogram for malignant neoplasm of breast (principal); R92.323 Mammographic fibroglandular density, bilateral breasts; R92.1 Mammographic calcification found on diagnostic imaging of breast
CPT/HCPCS: 77063; 77067

== ENCOUNTER → 2024-06-26 12:40 | Outpatient (BNVA) | payer OTHER, SELFPAY | PROVIDERS: PCP Family Medicine Adult Medicine; Visit Provider Nurse Practitioner Family | DX: R05.9 Cough, unspecified (principal); E11.69 Type 2 diabetes mellitus with other specified complication; E66.9 Obesity, unspecified; J06.9 Acute upper respiratory infection, unspecified | CPT/HCPCS: 71046; 80053; 83036; 85025 ==

== ENCOUNTER → 2024-08-12 11:16 | Outpatient (BNVA) | payer OTHER, MEDICAID, SELFPAY | PROVIDERS: PCP Family Medicine; Visit Provider Family Medicine | DX: F17.210 Nicotine dependence, cigarettes, uncomplicated (principal); Z12.2 Encounter for screening for malignant neoplasm of respiratory organs; E11.69 Type 2 diabetes mellitus with other specified complication; E66.9 Obesity, unspecified; E78.5 Hyperlipidemia, unspecified; I10 Essential (primary) hypertension; K21.9 Gastro-esophageal reflux disease without esophagitis; N18.2 Chronic kidney disease, stage 2 (mild); E66.01 Morbid (severe) obesity due to excess calories; Z68.41 Body mass index [BMI] 40.0-44.9, adult; D75.89 Other specified diseases of blood and blood-forming organs; Z76.89 Persons encountering health services in other specified circumstances | CPT/HCPCS: 80061; 82043; 82607; 84439; 84443 ==

== ENCOUNTER 2024-08-25 09:21 | Outpatient (CLI) | payer MEDICARE, MEDICAID, SELFPAY ==
--- NOTE | 2024-08-25 10:00 | CT_ITS ---
WS: [email or web address] LDCT LUNG CANCER SCREENING TECHNIQUE: Noncontrast CT of the chest with coronal and sagittal reformatted images. CLINICAL INFORMATION: smoker; 41pk yr; screening COMPARISON: None. DLP: 231.92 mGy.cm DIvol: Mean CTDIvol: 6.20 (mGy) All CT scans at [facility] use at least one of these dose optimization techniques: automated exposure control; mA and/or kV adjustment per patient size (includes targeted exams where dose is matched to clinical indication); or iterative reconstruction. FINDINGS: No suspicious pulmonary parenchymal abnormalities. Numerous calcified granulomas. Calcified hilar lymph nodes. Calcified pretracheal and subcarinal lymph nodes. Adrenal glands are normal. Cholelithiasis. Normal GE junction. Hepatomegaly. Splenic granulomas. Moderate thoracic kyphosis. Schmorl's nodes in the thoracic spine. CT/CT lung screening [id number] IMPRESSION: LUNG-RADS: 2-Benign Appearance or Behavior FOLLOW UP: 12 Month: Continue annual screening with LDCT Cholelithiasis could be followed up with gallbladder ultrasound if indicated
== END 2024-08-25 09:22 | disposition home or self-care (01) ==
LOC: RAD 09:24
PROVIDERS: PCP Family Medicine; Visit Provider Family Medicine
DX: Z12.2 Encounter for screening for malignant neoplasm of respiratory organs (principal); F17.210 Nicotine dependence, cigarettes, uncomplicated; J84.10 Pulmonary fibrosis, unspecified; I89.8 Other specified noninfective disorders of lymphatic vessels and lymph nodes; K80.20 Calculus of gallbladder without cholecystitis without obstruction; R16.0 Hepatomegaly, not elsewhere classified; L92.8 Other granulomatous disorders of the skin and subcutaneous tissue; M40.294 Other kyphosis, thoracic region; M51.44 Schmorl's nodes, thoracic region
CPT/HCPCS: 71271

== ENCOUNTER 2024-10-13 16:04 | Outpatient (CLI) | payer MEDICARE, SELFPAY ==
--- NOTE | 2024-10-13 16:13 | XR_ITS ---
WS: [email or web address] XR hip LT 2-3V wo/w pel* [id number] REASON FOR EXAM: fall FINDINGS: Bilateral total hip arthroplasties. The components of the arthroplasties are intact and in proper position and alignment. No acute fracture identified. XR/XR hip LT 2-3V wo/w pel* [id number] IMPRESSION: Bilateral hip arthroplasties. No acute abnormality.
== END 2024-10-13 16:05 | disposition home or self-care (01) ==
LOC: RAD 16:08
PROVIDERS: PCP Family Medicine; Visit Provider Registered Nurse Neonatal Intensive Care
DX: Z96.643 Presence of artificial hip joint, bilateral (principal); W19.XXXA Unspecified fall, initial encounter
CPT/HCPCS: 73502

== ENCOUNTER → 2024-11-04 11:55 | Outpatient (BNVA) | payer MEDICARE, SELFPAY | PROVIDERS: PCP Family Medicine; Visit Provider Family Medicine | DX: E11.69 Type 2 diabetes mellitus with other specified complication (principal); E66.9 Obesity, unspecified; I10 Essential (primary) hypertension; E66.01 Morbid (severe) obesity due to excess calories; Z68.41 Body mass index [BMI] 40.0-44.9, adult; K21.9 Gastro-esophageal reflux disease without esophagitis; N18.2 Chronic kidney disease, stage 2 (mild); M54.9 Dorsalgia, unspecified; G89.29 Other chronic pain; F17.210 Nicotine dependence, cigarettes, uncomplicated; M25.552 Pain in left hip | CPT/HCPCS: 83036 ==

== ENCOUNTER 2025-02-02 10:30 | Outpatient (CLI) | payer OTHER, SELFPAY ==
--- NOTE | 2025-02-02 | MM_ITS ---
WS: [email or web address] BILATERAL SCREENING DIGITAL TOMOSYNTHESIS MAMMOGRAM WITH CAD HISTORY: ANNUAL SCREENING COMPARISON: 01/31/2024, 01/29/2023, 01/27/2022 Bilateral CC and MLO views with tomosynthesis and synthetic mammography submitted. Computer aided detection analyzed. Breast composition: The breasts are almost entirely fatty. No suspicious masses, microcalcifications or architectural distortion. Benign calcifications in the anterior LEFT breast. Long-term stable 3 mm nodule RIGHT retroareolar. MM/MM scr BI tomosynthesis [id number] IMPRESSION: BI-RADS: 2 - Benign. FOLLOW UP: 1 Year Follow-up
== END 2025-02-02 10:31 | disposition home or self-care (01) ==
LOC: RAD 10:31
PROVIDERS: PCP Family Medicine; Visit Provider Family Medicine
DX: Z12.31 Encounter for screening mammogram for malignant neoplasm of breast (principal)
CPT/HCPCS: 77063; 77067

== ENCOUNTER → 2025-03-26 12:18 | Outpatient (BNVA) | payer MEDICARE, SELFPAY | PROVIDERS: PCP Family Medicine; Visit Provider Family Medicine | DX: I10 Essential (primary) hypertension (principal); E11.69 Type 2 diabetes mellitus with other specified complication; E66.9 Obesity, unspecified; E78.5 Hyperlipidemia, unspecified | CPT/HCPCS: 80053; 83036 ==

== ENCOUNTER → 2025-03-27 10:28 | Outpatient (BNVA) | payer MEDICARE, SELFPAY | PROVIDERS: PCP Family Medicine | DX: Z79.899 Other long term (current) drug therapy (principal); L40.9 Psoriasis, unspecified | CPT/HCPCS: 86480 ==

== ENCOUNTER → 2025-05-14 15:29 | Outpatient (BNVA) | payer MEDICARE, SELFPAY | PROVIDERS: PCP Family Medicine; Visit Provider Family Medicine | DX: R11.10 Vomiting, unspecified (principal); Z11.59 Encounter for screening for other viral diseases; Z11.4 Encounter for screening for human immunodeficiency virus [HIV] | CPT/HCPCS: 80053; 83690; 85025; 86803; 87806 ==

== ENCOUNTER 2025-05-29 09:19 | Outpatient (CLI) | payer MEDICARE, SELFPAY ==
--- NOTE | 2025-05-29 09:25 | XR_ITS ---
WS: [email or web address] Exam: XR lumbar spine 2-3V* [id number] Date/Time of Exam: 05/29/2025 9:26 AM Reason For Exam: low back pain DLP: Comparison 05/13/2008. No acute fracture or malalignment. Marked disc degeneration and spondylosis at L1-2. Moderate narrowing of the L4-5 disc. Mild degenerative anterolisthesis of L4 on L5. Facet DJD at all levels. Increased lordosis. Levoscoliosis at the thoracolumbar junction. Partially visualized bilateral total hip replacements. IMPRESSION1. Degenerative changes as above. No fracture or malalignment.
--- NOTE | 2025-05-29 09:30 | US_ITS ---
WS: [email or web address] RIGHT UPPER QUADRANT ULTRASOUND HISTORY: vomiting spells COMPARISON: 03/09/2014 Liver: 18.0 cm in length. Mildly enlarged liver. Coarse echotexture. Surface of the liver is nodular and irregular suggesting cirrhosis. No intrahepatic duct dilatation. Normal portal vein. Portal Vein: Normal hepatopetal flow with monophasic waveform. Gallbladder: Normal size gallbladder with stones. Gallstones were previously described in 2014 also. CBD: 0.5 cm Pancreas: Normal size and echogenicity. Right kidney: 10.2 cm in length. Diffuse cortical thinning RIGHT kidney. Complex cystic mass in the superior pole measures 1.7 x 2.1 x 2.2 cm. Location of this mass is not completely determine. On the sagittal image of the mass appears to be in the lower pole. On the remaining images it is labeled superior pole. No mass identified on the CT from 2014 in the RIGHT kidney. Aorta and IVC: Unremarkable abdominal aorta and IVC. No ascites. US/US abdomen limited [id number] IMPRESSION: 1. Cholelithiasis without acute cholecystitis. 2. Indeterminate mass RIGHT kidney. Location of this mass has not been determi gay by ultrasound. Recommend follow-up MRI or CT renal mass protocol for furthe r evaluation. Renal cell neoplasm needs to be excluded. 3. Mild cortical thinning RIGHT kidney. 4. Mild hepatomegaly with cirrhotic appearing liver.
== END 2025-05-29 09:20 | disposition home or self-care (01) ==
LOC: RAD 09:21
PROVIDERS: PCP Family Medicine; Visit Provider Family Medicine
DX: R11.10 Vomiting, unspecified (principal); K80.20 Calculus of gallbladder without cholecystitis without obstruction; M54.9 Dorsalgia, unspecified; G89.29 Other chronic pain; R94.4 Abnormal results of kidney function studies; N28.89 Other specified disorders of kidney and ureter; R16.0 Hepatomegaly, not elsewhere classified; R93.421 Abnormal radiologic findings on diagnostic imaging of right kidney; R93.2 Abnormal findings on diagnostic imaging of liver and biliary tract
CPT/HCPCS: 72100; 76705

== ENCOUNTER 2025-06-15 14:51 | Outpatient (CLI) | payer MEDICARE, SELFPAY ==
--- NOTE | 2025-06-15 15:43 | CTR_ITS ---
PROCEDURE INFORMATION: Exam: CT Abdomen And Pelvis Without And With Contrast Exam date and time: 06/15/2025 3:53 PM Age: 59 years old Clinical indication: Abnormal findings; Mass, lump, or swelling; Abdomen; Not specified; Prior surgery; Surgery date: 6+ months; Surgery type: Hyst, bilat hips; Follow up on RT renal mass; Additional info: Right renal mass TECHNIQUE: Imaging protocol: Computed tomography of the abdomen and pelvis without and with contrast. 3D rendering (Not supervised by radiologist): MIP and/or 3D reconstructed images were created by the technologist. Radiation optimization: All CT scans at this facility use at least one of these dose optimization techniques: automated exposure control; mA and/or kV adjustment per patient size (includes targeted exams where dose is matched to clinical indication); or iterative reconstruction. Contrast material: OMNIPAQUE 350; Contrast volume: 100 ml; Contrast route: INTRAVENOUS (IV); COMPARISON: CR XR hip LT 2-3V wo/w pel* [id number] 10/13/2024 4:18 PM RADIATION DOSE METRICS: Total DLP (mGy-cm): 4819.83 FINDINGS: Lungs: Left lower lobe atelectasis. Liver: Normal. No mass. Gallbladder and biliary ducts: Cholelithiasis with gallbladder wall thickening, consider further evaluation with ultrasound. Pancreas: Normal. No ductal dilation. Spleen: Normal. No splenomegaly. Adrenal glands: Normal. No mass. Kidneys and ureters: Right kidney interpolar region 2.3 cm cystic lesion with a somewhat thick walled internal septation suspected, correlation with MRI is advised for further characterization. Bilateral renal cysts, negative for follow-up advised. Stomach and bowel: Prominent fluid in the small bowel without dilation may reflect an enteritis. Gastric wall thickening, please correlate for gastritis. Appendix: No evidence of appendicitis. Intraperitoneal space: Unremarkable. No free air. No significant fluid collection. Vasculature: Unremarkable. No abdominal aortic aneurysm. Lymph nodes: Unremarkable. No enlarged lymph nodes. Urinary bladder: Unremarkable as visualized. Reproductive: Unremarkable as visualized. Bones/joints: Bilateral hip arthroplasty changes. Soft tissues: Unremarkable. CT/CT abdomen pelvis wo/w [id number] IMPRESSION: 1. Right kidney interpolar region 2.3 cm cystic lesion with a somewhat thick walled internal septation suspected, correlation with MRI is advised for further characterization. 2. Left lower lobe atelectasis. 3. Cholelithiasis with gallbladder wall thickening, consider further evaluation with ultrasound. 4. Bilateral renal cysts, negative for follow-up advised. 5. Prominent fluid in the small bowel without dilation may reflect an enteritis. 6. Gastric wall thickening, please correlate for gastritis. COMMENTS: Consistent with the [employer]'s Incidental Findings Committee white paper (J Am Denice Radiol 2018): Any incidental renal lesion less than 1 cm or classified as too small to characterize, or any incidental cystic renal lesion characterized as simple-appearing, is likely benign. No follow-up imaging is recommended for these lesions per consensus recommendations based on imaging criteria.
[2025-06-15] MEDS: iohexol 350 mg/mL 500 mL Btl (per mL) IV (16:02)
== END 2025-06-15 14:52 | disposition home or self-care (01) ==
LOC: RAD 14:52
PROVIDERS: PCP Family Medicine; Visit Provider Family Medicine
DX: N28.89 Other specified disorders of kidney and ureter (principal); J98.11 Atelectasis; K80.20 Calculus of gallbladder without cholecystitis without obstruction; R93.3 Abnormal findings on diagnostic imaging of other parts of digestive tract; N28.1 Cyst of kidney, acquired; R93.89 Abnormal findings on diagnostic imaging of other specified body structures; Z96.643 Presence of artificial hip joint, bilateral
CPT/HCPCS: 74178

== ENCOUNTER → 2025-06-30 12:14 | Outpatient (BNVA) | payer MEDICARE, SELFPAY | PROVIDERS: PCP Family Medicine; Visit Provider Family Medicine | DX: E66.9 Obesity, unspecified (principal); E11.69 Type 2 diabetes mellitus with other specified complication | CPT/HCPCS: 83036 ==

== ENCOUNTER 2025-07-02 10:31 | Outpatient (CLI) | payer MEDICARE, SELFPAY ==
--- NOTE | 2025-07-02 11:00 | MR_ITS ---
WS: [email or web address] MRI ABDOMEN WITH AND WITHOUT CONTRAST. COMPARISON: Ultrasound 05/29/[address] 06/15/2025. Multiplanar, multisequence imaging is performed with and without contrast. Sagittal and axial T1 fat sat sequences post-MultiHance 19 cc IV. RIGHT kidney: Kidney measures 9.0 cm in length. Mild cortical thinning of the lower pole. No renal obstruction. Well-circumscribed T2 hyperintense mass mid lateral kidney measures 2.0 x 1.8 x 2.2 cm. This corresponds to the indeterminate mass by ultrasound and CT. Mass does not enhance on the postcontr ast imaging. No renal obstruction. Tiny T1 hyperintense nodule in the inferior pole of the RIGHT kidney does not enhance. This is probably a small hemorrhagic cyst or fat-containing lesion. Normal size LEFT kidney. Several cysts associated with the LEFT kidney. The largest centered in the renal pelvis measures 4.2 x 4.5 x 4.4 cm and does not enhance. There is a smaller cyst posterior kidney which also does not enhance. There are a few additional small cysts which are subcentimeter with no enhancement. Visualized liver and spleen are normal. Cholelithiasis without evidence for acute cholecystitis. Normal common bile duct. Normal pancreas and pancreatic duct. No adrenal mass. There is very slight thickening of the LEFT adrenal gland. No ascites. Mild atherosclerosis abdominal aorta. No adenopathy. MR/MR abdomen wo/w con* [id number] IMPRESSION: 1. Simple cyst mid lateral RIGHT kidney by MRI. There is no enhancement. 2. There are additional bilateral simple cysts within each kidney. No solid en hancing renal mass or obstruction. 3. Cholelithiasis without acute cholecystitis. 4. No ascites or adenopathy.
[2025-07-02] MEDS: gadobenate dimeglumine 20 mL vial 19 ML IV (11:39)
== END 2025-07-02 10:32 | disposition home or self-care (01) ==
LOC: RAD 10:32
PROVIDERS: PCP Family Medicine; Visit Provider Family Medicine
DX: N28.89 Other specified disorders of kidney and ureter (principal); K80.20 Calculus of gallbladder without cholecystitis without obstruction
CPT/HCPCS: 74183

== ENCOUNTER → 2025-07-06 10:54 | Outpatient (BNVA) | payer MEDICARE, SELFPAY | PROVIDERS: PCP Family Medicine; Visit Provider Student in an Organized Health Care Education/Training Program | DX: K82.9 Disease of gallbladder, unspecified (principal); R12 Heartburn | CPT/HCPCS: 99204 ==